=== PATIENT | female | born 1960 | race Caucasian/White ===

== ENCOUNTER 2020-01-05 16:13 | Outpatient (CLI) | payer OTHER, SELFPAY ==
[2020-01-05 17:51] LABS: Rheumatoid Factor < 8.6 IU/ML (<12)
[2020-01-05 17:55] LABS: CRP < 0.5 mg/dL (<1.0); Uric Acid 3.5 mg/dL (2.5-7.5)
[2020-01-05 18:24] LABS: Erythrocyte Sedimentation Rate 15 mm/hr (0-20)
[2020-01-28 15:37] LABS: HLA B27 Negative
== END 2020-01-05 16:14 | disposition home or self-care (01) ==
PROVIDERS: PCP Internal Medicine; Visit Provider Podiatrist Foot & Ankle Surgery
DX: M19.90 Unspecified osteoarthritis, unspecified site (principal)
CPT/HCPCS: 36415; 84550; 85652; 86038; 86039; 86140; 86430; 86812

== ENCOUNTER → 2022-01-10 14:46 | Outpatient (CLI) | payer OTHER, SELFPAY ==
--- NOTE | ~2022-01-10 | CT_ITS ---
EXAMINATION: CT lung screening DATE: 01/10/2022 15:17 INDICATION: Personal history of tobacco dependence. Lung cancer screening. TECHNIQUE: Computed tomography (CT) of the chest was performed without intravenous contrast. The dose -length product was 69.81 mGy-cm. Automated exposure control and iterative reconstruction technique w ere employed. COMPARISON: 10/22/2018 FINDINGS: Heart size is normal. No thoracic lymphadenopathy. No pulmonary nodules. Mild atheroscleros is. No significant pleural or pericardial effusion. There is mild emphysema. No endobronchial lesions . The upper abdomen is unremarkable. No pneumothorax. No peripheral airspace disease. Mild thoracic s pondylosis. No acute osseous abnormality. IMPRESSION: 1. Lung-RADS category 1: Negative. Continue annual screening with noncontrast low-dose chest CT in 12 months. Reviewed, dictated and finalized at location A. IMPRESSION: 1. Lung-RADS category 1: Negative. Continue annual screening with noncontrast l ow-dose chest CT in 12 months.
== END ==
PROVIDERS: PCP Internal Medicine; Visit Provider Internal Medicine
DX: Z12.2 Encounter for screening for malignant neoplasm of respiratory organs (principal); Z87.891 Personal history of nicotine dependence
CPT/HCPCS: 71271

== ENCOUNTER 2022-02-16 01:23 | Day surgery (SDC) | payer OTHER, SELFPAY ==
[2022-02-08 14:02] VITALS: BMI 24.3
--- NOTE | 2022-02-15 13:47 | P.HP_ITS ---
History of Present Illness History of Present Illness Consent: Risks, benefits, and alternatives have been discussed and questions answered. Patient agrees to proceed with procedure. Chief complaint: History of colon polyps Narrative: Hyun Tolbert is a 61 year old female With history of polyps. 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 A few small polyps were found at the time of her last colonoscopy about 5 years ago. Review of Systems Review of Systems: All systems reviewed & are unremarkable except as noted in HPI and below PMFSH Surgical History Surgical History H/O section X1 1986 History of bladder surgery 1999 Family History Family History Father Diabetes mellitus Acute myocardial infarction Mother Asthma Acute myocardial infarction Social History Social History Smoking packs per day: 0.5 Smoking cigarettes per day: 10.0 Years smoked: 40 Smoking pack-years: 20.00 Smoking status: Current every day smoker Tobacco type: cigarettes Alcohol intake: current Drinks per week: 15 Substance use: never Substance use type: does not use Living arrangements: alone Spiritual care concerns: No Meds Home Medications and Allergies Home Medications Medication Instructions Recorded Confirmed Type ascorbic acid (vitamin C) 500 mg 500 mg PO DAILY 12/07/21 02/08/22 History capsule cholecalciferol (vitamin D3) 25 25 mcg PO DAILY 12/07/21 02/08/22 History mcg (1,000 unit) capsule lactobacillus combination no.9 4 4,000 mmu cells PO DAILY 12/07/21 02/08/22 History billion cell capsule (Adult 50 Plus Probiotic) mecobalamin (vitamin B12) 1,000 1,000 mcg PO DAILY 12/07/21 02/08/22 History mcg chewable tablet progesterone micronized 100 mg 100 mg PO QAM 12/07/21 02/08/22 History capsule zinc acetate 25 mg (zinc) capsule 25 mg PO DAILY 12/07/21 02/08/22 History atorvastatin 10 mg tablet 10 mg PO QHS #90 tabs 12/15/21 02/08/22 Rx thyroid (pork) 30 mg tablet 30 mg PO DAILY 01/03/22 02/08/22 History ([place] Thyroid) Allergies Allergy/AdvReac Type Severity Reaction Status Date / Time erythromycin base Allergy Mild Vomiting Verified 02/16/22 06:49 Penicillins Allergy Unknown unknown Verified 02/16/22 06:49 Exam Const: General: alert Orientation/consciousness: patient oriented x3 Resp: Auscultation: clear to auscultation bilaterally Cardio: Rhythm: regular rhythm GI: GI Palp: Yes Soft to palpation and No Tenderness to palpation present (GI) Neuro: General: patient oriented x3 Assessment and Plan Assessment and plan (1) Colon cancer screening: Code(s): Z12.11 - Encounter for screening for malignant neoplasm of colon Status: Acute Assessment and Plan: Colonoscopy with possible biopsy or polypectomy or cautery or injection of substances.
[2022-02-16 06:50] VITALS: BP 101/54; PULSE 83; RESP 18; TEMP 36.7; O2SAT 97
[2022-02-16] MEDS: LACTATED RINGERS 1,000 ML 150 ML IV CONT (06:57)
--- NOTE | 2022-02-16 08:00 | WPDANESEPPF ---
Anes - Initial Pre Proc Eval Procedure: Operation Date: 02/16/22 08:00 Proposed Procedures p Screening Colonoscopy - Miguel Hopkins MD Date/Time: 02/16/22 08:00 Surgeon: Miguel Hopkins MD Pre Op Diagnosis: History of colon polyps Patient Data Age: 61 Gender: F Height: 1.68 m Weight: 69.4 kg Last Vital Signs Temp 98.1 F 02/16/22 06:50 Pulse 83 02/16/22 06:50 Resp 18 02/16/22 06:50 BP 101/54 L 02/16/22 06:50 Pulse Ox 97 02/16/22 06:50 O2 Del Method Room Air 02/16/22 06:50 Allergies Allergy/AdvReac Type Severity Reaction Status Date / Time erythromycin base Allergy Mild Vomiting Verified 02/16/22 06:49 Penicillins Allergy Unknown unknown Verified 02/16/22 06:49 Home Medications Medication Instructions Recorded Confirmed Type ascorbic acid (vitamin C) 500 mg 500 mg PO DAILY 12/07/21 02/08/22 History capsule cholecalciferol (vitamin D3) 25 25 mcg PO DAILY 12/07/21 02/08/22 History mcg (1,000 unit) capsule lactobacillus combination no.9 4 4,000 mmu cells PO DAILY 12/07/21 02/08/22 History billion cell capsule (Adult 50 Plus Probiotic) mecobalamin (vitamin B12) 1,000 1,000 mcg PO DAILY 12/07/21 02/08/22 History mcg chewable tablet progesterone micronized 100 mg 100 mg PO QAM 12/07/21 02/08/22 History capsule zinc acetate 25 mg (zinc) capsule 25 mg PO DAILY 12/07/21 02/08/22 History atorvastatin 10 mg tablet 10 mg PO QHS #90 tabs 12/15/21 02/08/22 Rx thyroid (pork) 30 mg tablet 30 mg PO DAILY 01/03/22 02/08/22 History ([place] Thyroid) Patient hx anesthesia problems: none Family hx anesthesia problems: none Results Review: All pre-operative results and documents have been reviewed as part of the pre-operative evaluation. [facility] Surgical History Surgical History H/O section X1 1986 History of bladder surgery 1999 Family History Family History Father Diabetes mellitus Acute myocardial infarction Mother Asthma Acute myocardial infarction Social History Social History Smoking packs per day: 0.5 Smoking cigarettes per day: 10.0 Years smoked: 40 Smoking pack-years: 20.00 Smoking status: Current every day smoker Tobacco type: cigarettes Alcohol intake: current Drinks per week: 15 Substance use: never Substance use type: does not use Living arrangements: alone Spiritual care concerns: No Anes - Eval Final PreProcedure Day of Procedure 02/16/22 08:00 Patient weight: normal Heart: regular rate and rhythm Lungs: clear to auscultation Airway: Mallampati scale class II Neurological: alert and oriented Last oral intake: >/= 8 hours ASA classification: II Emergent: no Anesthetic plan: proceed Anesthesia type and monitoring: general GIVS and standard monitoring Results Review: All pre-operative results and documents have been reviewed as part of the pre-operative evaluation. Informed Consent: The patient's anesthetic plan and its attendant risks and benefits were discussed with the patient/family/POA. Questions were solicited and answers provided to the satisfaction of the patient/family/POA.
[2022-02-16 08:27] VITALS: BP 90/65; PULSE 80; RESP 21; O2SAT 99
[2022-02-16 08:37] VITALS: BP 99/60; PULSE 78; RESP 17; O2SAT 100
[2022-02-16 08:47] VITALS: BP 111/73; PULSE 75; RESP 22; O2SAT 99
== END 2022-02-16 08:58 | disposition home or self-care (01) ==
PROVIDERS: PCP Internal Medicine; Visit Provider Internal Medicine Gastroenterology
PROC: 0DJD8ZZ Inspection of Lower Intestinal Tract, Via Natural or Artificial Opening Endoscopic (ICD-10-PCS; CPT 45378; principal; 2022-02-16 08:00)
DX: Z12.11 Encounter for screening for malignant neoplasm of colon (principal); D12.5 Benign neoplasm of sigmoid colon; F17.210 Nicotine dependence, cigarettes, uncomplicated
CPT/HCPCS: 45385; 88305; J2704; J7120

== ENCOUNTER → 2023-05-25 09:15 | Outpatient (CLI) | payer OTHER, SELFPAY ==
--- NOTE | ~2023-05-25 | XR_ITS ---
XR lumbar spine min 4V DATE: 05/25/2023 09:35 INDICATION: Low back pain, right side, for several months. No injury TECHNIQUE: AP, lateral, bilateral oblique views, coned lateral lumbosacral view COMPARISON: None FINDINGS: There is osteopenia. There is 16 degrees rotatory dextroscoliosis measured from T12 to L4. There is degenerative change at the apophyseal joints with associated minimal grade 1 anterolisthesis at L3-4. Moderate to moderately severe degenerative disease at L3-4. Severe degenerative disc disease at L4-5. Moderately severe degenerative disc disease at L5-S1. No fracture or bone destruction. No spondylolysis. The lumbar pedicles are intact. The sacroiliac joints are intact. Abdominal aortic calcification, without evidence of aneurysm. Iliac artery calcifications. IMPRESSION: Multilevel degenerative disc disease, most severe at L4-5 and L5-S1 Minimal grade 1 anterolisthesis and moderate to moderately severe degenerative disc disease at L3-4 Osteopenia 16 degrees rotatory dextroscoliosis Reviewed, dictated and finalized at location B. 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
== END ==
PROVIDERS: PCP Nurse Practitioner; Visit Provider Nurse Practitioner
DX: M85.88 Other specified disorders of bone density and structure, other site (principal); M51.36 Other intervertebral disc degeneration, lumbar region; M51.37 Other intervertebral disc degeneration, lumbosacral region
CPT/HCPCS: 72110

== ENCOUNTER 2023-06-20 10:51 | Outpatient (CLI) | payer OTHER, SELFPAY ==
--- NOTE | ~2023-06-20 | MR_ITS ---
EXAMINATION: MR lumbar spine wo con DATE: 06/20/2023 11:19 INDICATION: Low back pain, unspecified. Right leg pain. TECHNIQUE: Magnetic resonance imaging (MRI) of the lumbar spine was performed without intravenous con trast. Sequences included sagittal T2-weighted FSE, sagittal T2-weighted FS FSE, sagittal T1-weighted FSE, and axial T2-weighted FSE. COMPARISON: Lumbar spine radiograph 05/25/2023 FINDINGS: There is 19 degrees dextroscoliosis of lumbar spine. Vertebral body heights are normal. The re is moderately decreased disc height at L3-L4 and severely decreased disc height at L4-L5 and L5-S1 . The distal spinal cord signal intensity is normal. The conus medullaris is at L1. The following dis c levels are specifically discussed: L1-L2: The disc is bulging. There is mild bilateral facet joint osteoarthritis. There is no neural fo raminal stenosis. There is mild central canal stenosis. L2-L3: There is a right foraminal protrusion. There is mild right facet joint osteoarthritis. There i s mild right neural foraminal stenosis. There is no central canal stenosis. L3-L4: The disc is bulging and has an annular fissure. There is moderate right and severe left facet joint osteoarthritis. There is mild bilateral neural foraminal stenosis. There is mild central canal stenosis. L4-L5: The disc is bulging and has an annular fissure. There is moderate bilateral facet joint osteoa rthritis. There is mild bilateral neural foraminal stenosis. There is mild central canal stenosis. L5-S1: The disc is bulging and has an annular fissure. There is severe right and mild left facet join t osteoarthritis. There is moderate right and mild left neural foraminal stenosis. There is mild cent ral canal stenosis. IMPRESSION: 1. Severe lumbar spondylosis. 2. Lumbar dextroscoliosis. Reviewed, dictated and finalized at location A.
--- NOTE | ~2023-06-20 | CT_ITS ---
CT Scan of the Chest without Contrast: Clinical Indication: Lung cancer screening, personal history of nicotine dependence Technique: Contiguous sections were acquired throughout the chest without intravenous contrast. Dose reduction technique was used on this scan by utilizing automated exposure control and iterative recon struction technique. The dose-length product (DLP) was 81.19 mGy-cm. COMPARISON: 01/10/2022 Findings: There is no evidence of any significant mediastinal, hilar or axillary lymphadenopathy. The mediastin al soft tissues appear normal. There is no evidence of pleural or pericardial effusion. The lungs are clear. No pulmonary nodules or infiltrates are noted. Images through the upper abdomen reveal no abnormalities. Impression: Lung RADS 1: Negative. 12 month follow-up screening CT advised. Reviewed, dictated and finalized at location . Impression: Lung RADS 1: Negative. 12 month follow-up screening CT advised.
== END 2023-06-20 10:52 ==
LOC: MICIMG 10:51
PROVIDERS: PCP Nurse Practitioner; Visit Provider Nurse Practitioner
DX: Z12.2 Encounter for screening for malignant neoplasm of respiratory organs (principal); M54.50 Low back pain, unspecified; Z72.0 Tobacco use; M43.06 Spondylolysis, lumbar region; M41.86 Other forms of scoliosis, lumbar region
CPT/HCPCS: 71271; 72148

== ENCOUNTER 2023-11-02 10:40 | Outpatient (CLI) | payer OTHER, SELFPAY ==
--- NOTE | ~2023-11-02 | MM_ITS ---
EXAMINATION: MM screening va BI w [place] HISTORY: Screening TECHNIQUE: Craniocaudal and mediolateral oblique 3-D tomosynthesis images were obtained and synthetic 2-D images were generated. CAD analysis was submitted and interpreted. COMPARISON: 08/04/2015 BREAST PARENCHYMAL COMPOSITION: Not dense: There are scattered areas of fibroglandular density. FINDINGS: There is no evidence of suspicious mass, calcification, or architectural distortion to sugg est malignancy in either breast. There has been no suspicious interval change. IMPRESSION: 1. No mammographic evidence of malignancy. 2. Recommend routine screening mammography in one year. BI-RADS Category 1: Negative Reviewed, dictated and finalized at location B.
== END 2023-11-02 10:41 ==
LOC: MICIMG 10:42
PROVIDERS: PCP Nurse Practitioner; Visit Provider Nurse Practitioner
DX: Z12.31 Encounter for screening mammogram for malignant neoplasm of breast (principal)
CPT/HCPCS: 77063; 77067

== ENCOUNTER 2024-04-22 08:53 | Outpatient (CLI) | payer OTHER, SELFPAY ==
--- NOTE | ~2024-04-22 | DEXA_ITS ---
Bone Density Report Name: SUSHIL TERAN Age: 63 Sex: Female Ethnicity: White Date of : 1960 Indication: postmenopausal; screening for osteoporosis; Referring Provider: MARIAH MARTIN Study: Bone densitometry was performed. Exam Date: April 22, 2024 Accession number: [id number] Bone Density: Region BMD T-score Z-score Classification AP Spine(L1-L4) 0.906 -1.3 0.3 Osteopenia Femoral Neck (Left) 0.575 -2.5 -1.1 Osteoporosis Total Hip (Left) 0.704 -2.0 -0.9 Osteopenia Femoral Neck (Right) 0.508 -3.1 -1.7 Osteoporosis Total Hip (Right) 0.660 -2.3 -1.3 Osteopenia Total Hip Mean 0.682 -2.2 -1.1 Osteopenia World Health Organization criteria for BMD impression classify patients as: Normal (T-score at or above -1.0), Osteopenia (T-score between -1.0 and -2.5), or Osteoporosis (T-score at or below -2.5). 10-year Fracture Risk: FRAX not reported because: Some T-score for Spine Total or Hip Total or Femoral Neck at or below -2.5 Clinical Information Provided by Patient: Smokes Has used the following medications: Vitamin D Patient maximum height was 65.5 Menopause Age: 44 No regular weight bearing exercise Drinks caffeinated beverages Onset of menses at age 18 Number of children 2 Impression: The patient has osteoporosis, based on the Right Femoral Neck T-score. The patient has risk factors, including: smoking. Discussion: INCREASED RISK OF FRACTURE. BONE DENSITY IS UNDESIRABLY LOW AT ONE OR MORE SKELETAL SITES, CONSISTENT WITH POSTMENOPAUSAL OSTEOPOROSIS. This patient's lowest T-score meets the World Health Organization's (WHO) criteria for osteoporosis at one or more sites (T-score -2.5 or below). In untreated patients, the risk of osteoporotic fracture increases approximately two-fold for each 1.0 SD decrease in T-score. Low bone density is not the only risk factor for fracture; also consider factors such as patient's age, frailty or poor health, risk of falling, risk of injury, previous osteoporotic fracture, family history of osteoporosis, cigarette smoking, low body weight, etc. Not everyone with low bone mineral density has osteoporosis; osteomalacia and other metabolic bone disorders should also be considered. Patients who have osteoporosis should be evaluated for specific diseases and conditions (secondary causes) that may cause or contribute to bone loss. The [place] [employer]ocrin[employer] (AACE) and National Osteoporosis Foundation (NOF) recommend pharmacologic intervention for all postmenopausal women whose T-score is in this range. The patient should follow a healthful lifestyle (good nutrition with adequate calcium and vitamin D, and appropriate weight-bearing exercise). Follow-Up: Consider a repeat BMD and Vertebral Fracture Assessment (VFA) exam in 2 years or sooner if medically necessary, to reassess this patient's status. Reported by: TONNY on 04/22/2024 9:27:00 AM. Reviewed, dictated and finalized at location A.
== END 2024-04-22 08:54 | disposition home or self-care (01) ==
LOC: ANHIMG 08:58
PROVIDERS: PCP Nurse Practitioner; Visit Provider Nurse Practitioner
DX: Z78.0 Asymptomatic menopausal state (principal); M81.0 Age-related osteoporosis without current pathological fracture; M85.88 Other specified disorders of bone density and structure, other site; M85.852 Other specified disorders of bone density and structure, left thigh; M85.851 Other specified disorders of bone density and structure, right thigh
CPT/HCPCS: 77080

== ENCOUNTER 2024-07-28 08:46 | Outpatient (CLI) | payer OTHER, SELFPAY ==
--- NOTE | ~2024-07-28 | CT_ITS ---
CT Scan of the Chest without Contrast: Clinical Indication: Lung cancer screening, nicotine dependence Technique: Contiguous sections were acquired throughout the chest without intravenous contrast. Dose reduction technique was used on this scan by utilizing automated exposure control and iterative recon struction technique. The dose-length product (DLP) was 112.64 mGy-cm. Findings: There is no evidence of any significant mediastinal, hilar or axillary lymphadenopathy. The mediastin al soft tissues appear normal. There is no evidence of pleural or pericardial effusion. The lungs are clear. No pulmonary nodules or infiltrates are noted. Images through the upper abdomen reveal no abnormalities. Impression: Lung RADS 1: Negative. 12 month follow-up screening CT advised. Reviewed, dictated and finalized at location . Impression: Lung RADS 1: Negative. 12 month follow-up screening CT advised.
== END 2024-07-28 08:47 | disposition home or self-care (01) ==
PROVIDERS: PCP Nurse Practitioner; Visit Provider Nurse Practitioner
DX: Z12.2 Encounter for screening for malignant neoplasm of respiratory organs (principal); F17.210 Nicotine dependence, cigarettes, uncomplicated
CPT/HCPCS: 71271